=== PATIENT | female | born 1985 | race Caucasian/White ===

== ENCOUNTER 2016-11-26 14:48 | Emergency (ER) | payer MEDICAID, OTHER ==
[~2016-11-26] VITALS: Ht 172.7 cm; Wt 79.5 kg
[~2016-11-26 14:48] MED LIST: ACET-784 PO; AMIT50TA3 PO; GABA-531 PO; IBUP-2070 PO; SUMA25TA9 PO
[2016-11-26 17:16] VITALS: BP 125/80
== END 2016-11-26 18:36 | disposition home or self-care (01) ==
LOC: EMS 14:53
DX: G43.909 Migraine, unspecified, not intractable, without status migrainosus (principal); F41.9 Anxiety disorder, unspecified
CPT/HCPCS: 99281

== ENCOUNTER 2016-11-26 18:44 | Emergency (ER) | payer MEDICAID ==
[~2016-11-26] VITALS: Ht 172.7 cm; Wt 80.5 kg
[2016-11-26 19:49] VITALS: BP 121/78
== END 2016-11-26 20:32 | disposition home or self-care (01) ==
LOC: EMS 18:48
DX: G43.909 Migraine, unspecified, not intractable, without status migrainosus (principal); R06.00 Dyspnea, unspecified; R11.0 Nausea
CPT/HCPCS: 99283